=== PATIENT | female | born 1955 | race Caucasian/White ===

== ENCOUNTER 2024-09-27 13:59 | Outpatient (CLI) | payer OTHER | END 2024-09-27 14:18 | disposition home or self-care (01) | LOC: MRI 13:59 | PROVIDERS: ATTEND Orthopaedic Surgery | DX: M25.561 Pain in right knee (principal); M25.562 Pain in left knee | CPT/HCPCS: 73720; Q9965; 73721 ==

== ENCOUNTER → 2025-01-11 | Emergency (ER) | payer OTHER ==
[~2025-01-11] VITALS: Ht 157.5 cm; Wt 52.6 kg
[~2025-01-11] MED LIST: BAYER THERAPY325 MG PO; GLUCOSAMINE &1 EAC1 PO; LEVOTHYROXINE25 MCG PO; RELAFEN DS1000 MG PO; TRAMADOL HCL E100 M1
== END | disposition left against medical advice (07) ==
LOC: ER 08:19
DX: Z53.21 Procedure and treatment not carried out due to patient leaving prior to being seen by health care provider (principal)